=== PATIENT | female | born 1975 | race Caucasian/White ===

== ENCOUNTER 2019-02-12 14:09 | Emergency (ER) | payer MEDICAID ==
[~2019-02-12] VITALS: Ht 149.9 cm; Wt 87.1 kg
[2019-02-12 14:13] VITALS: BP 139/95; Ht 149.9 cm; Wt 87.1 kg
== END 2019-02-12 15:32 | disposition home or self-care (01) ==
LOC: ED 14:09
DX: J20.8 Acute bronchitis due to other specified organisms (principal)
CPT/HCPCS: Q0092